=== PATIENT | female | born 1995 | race Caucasian/White ===

== ENCOUNTER 2022-03-08 08:05 | Emergency (ER) | payer OTHER ==
[~2022-03-08] VITALS: Ht 165.1 cm; Wt 71.0 kg
[2022-03-08 08:15] VITALS: BP 155/91
[2022-03-08] MEDS ORDERED: ACETAMINOPHEN 325MG TABLET PO ONE (09:00)
[2022-03-08] MEDS ORDERED: TOPUD MT (10:39)
[2022-03-08] MEDS ORDERED: BACITRACIN ZINC OINT UDPKT TOP ONE (11:00)
== END 2022-03-08 11:05 | disposition home or self-care (01) ==
LOC: ER 08:05
DX: S01.81XA Laceration without foreign body of other part of head, initial encounter (principal); E03.9 Hypothyroidism, unspecified; Z88.2 Allergy status to sulfonamides; Z87.81 Personal history of (healed) traumatic fracture; W05.2XXA Fall from non-moving motorized mobility scooter, initial encounter; Y93.89 Activity, other specified; Y92.488 Other paved roadways as the place of occurrence of the external cause
CPT/HCPCS: 70486; 81025; 99284